=== PATIENT | female | born 1990 | race African-American/Black ===

== ENCOUNTER 2023-04-07 19:36 | Emergency (ER) | payer OTHER, SELFPAY ==
[2023-04-07 19:40] VITALS: BP 170/107
[2023-04-07 20:23] LABS: COVID-19 Antigen Negative (Negative)
[2023-04-07] MEDS: TYLENOL 1000 MG PO (22:11)
[2023-04-07] MEDS: TORADOL 30 MG IV (22:11)
[2023-04-07 22:12] LABS: % Basophils 0.5 % (0-2); % Eosinophils 1.3 % (0-6); % Immature Granulocytes 0.3 % (0-0.5); % Lymphocytes 16.3 % (20.5-51.1); % Monocytes 11.1 % (1.7-9.3); % Neutrophils 70.5 % (42.2-75.2); Absolute Basophils 0.1 10^3/uL (0-0.2); Absolute Eosinophils 0.1 10^3/uL (0-0.7); Absolute Lymphocytes 1.6 10^3/uL (1.2-3.4); Absolute Monocytes 1.1 10^3/uL (0.1-0.6); Hematocrit 40.7 % (37.0-47.0); Hemoglobin 13.7 g/dL (12.0-16.0); Mean Corp Hgb Conc. 33.7 g/dL (33.0-37.0); Mean Corpuscular Hgb 27.2 pg (27.0-31.0); Mean Corpuscular Volume 80.8 fL (81.0-99.0); Mean Platelet Volume 9.4 fL (7.4-10.4); Nucleated Red Blood Cells % 0 %; Platelet Count 298 10^3/uL (130-400); Red Blood Cell Count 5.04 10^6/uL (4.20-5.40); White Blood Cell Count 9.9 10^3/uL (4.8-10.8)
[2023-04-07] MEDS: NSS 1000 IV (22:12)
[2023-04-07 22:22] LABS: HCG, Serum Qualitative Screen Negative
[2023-04-07 22:27] LABS: ALT (SGPT) 89 U/L (0-35); AST (SGOT) 94 U/L (14-36); Alkaline Phosphatase 85 U/L (38-126); Blood Urea Nitrogen 9 mg/dl (7-17); Calcium 9.5 mg/dl (8.4-10.2); Carbon Dioxide 25 mmol/L (22-30); Chloride 95 mmol/L (98-107); Glucose 210 mg/dl (70-99); Potassium 4.1 mmol/L (3.5-5.1); Sodium 133 mmol/L (135-145); Total Bilirubin 0.7 mg/dl (0.2-1.3); Total Protein 7.3 g/dl (6.3-8.2); eGFR > 60.00
--- NOTE | 2023-04-07 23:30 | ED.GENMED ---
History of Present Illness
General
Chief Complaint: Breathing Problem
Source: patient
Exam Limitations: none
Time Seen by Provider: 04/07/23 21:13
Travel History
Have you had any contact with someone who has COVID-19?: Yes
Comment: herself
Do you have any symptoms of coronavirus? Fever > 100 degrees, chills, cough, shortness of breath, sore throat, loss of taste or smell, muscle aches, or headache?: Yes
Symptoms:: shortness of breath, fever, cough
History of Present Illness
History of Present Illness:
This is a 33 year old female that comes in with c/o fever and SOB. States that she was seen at an last night and told that she had COVID. States that she has a cough, fever and had trouble breathing. States that she has not taken anything as she
doesn't like to take medication. States that she has a headache with dizziness, and she vomited. Denies any chest pain, abd pain, nausea, diarrhea, urinary burning.
Past History
Past History
ED Past Medical History: NIDDM and Other (dysmenorrhea, Ovarian cyst)
ED Past Surgical History: Negative Appendectomy
Social History
Tobacco: Non-smoker
Alcohol: None
Drug: None
Personal: Single
Living: with family
Employment: Not employed
Family History
Family History: Other (Noncontributory)
Review of Systems
Review of Systems
All Other Systems: ROS reviewed and negative except as documented in HPI and ROS
Constitutional: Reports fever; Denies chills
EENT: Reports no symptoms
Respiratory: Reports cough and trouble breathing (Slight)
Cardiac: Reports no symptoms; Denies chest pain
ABD/GI: Reports vomiting; Denies abdominal pain, nausea or diarrhea
: Reports no symptoms; Denies dysuria, frequency or urgency
Musculoskeletal: Reports no symptoms
Skin: Reports no symptoms
Neurological: Reports dizzy and headache
Psychiatric: Reports no symptoms
Phy Exam
General Physical Exam
General Presentation: no apparent distress
General age: appears stated age
General Skin: warm and dry
General Habitus: normal
General Mental: alert
General Hydration: dry mucous membranes
ENT Exam
ENT Exam: TM's normal, pharynx normal and neck supple
Eye Exam
Eye Exam: EOMI
Cardiovascular Exam
Cardiovascular Exam: regular rate/rhythm, no edema, no murmur and normal peripheral pulses
Pulmonary Exam
Pulmonary Exam: lungs clear, no respiratory distress, no rales, chest non tender, no crackles, no rhonchi, no wheezing and other (Dry cough noted)
Gastrointestinal Exam
Gastrointestinal Exam: normal bowel sounds, non tender, soft, no organomegaly, no pulsatile mass, non distended and other (Obese)
Musculoskeletal Exam
Musculoskeletal Exam: full ROM and no edema
Skin Exam
Skin Exam: normal color, warm/dry, no rash and no petechia
Psychiatric Exam
Psychiatric Exam: normal mood/affect
Course
Orders/Labs/Results
Orders:
Orders
04/07/23 19:44
EKG [Electrocardiogram (*1)] Urgent
Reason for Study: Shortness of Breath
04/07/23 19:45
EKG- Treatment ONCE
04/07/23 19:52
COVID-19 Antigen Urgent
Source: Nasal Swab
Influenza A+B Rapid Molecular Urgent
JANUSZ Source: Nasal Swab
Specimen Description:
04/07/23 21:49
0.9% Sodium Chloride 1000 ml [Nss] 1,000 ml IV BOLUS
Acetaminophen [Tylenol] 1,000 mg PO NOW STA
Ketorolac [Toradol] 30 mg IV NOW STA
CR Chest - 2 Views Urgent
Comment:
Reason For Exam: SOB, Cough, fever
04/07/23 21:50
Test Result ONCE
04/07/23 22:07
Complete Blood Count/With Diff Urgent
Comprehensive Metabolic Panel Urgent
HCG, Serum Qualitative Screen Urgent
Abnormal Lab Results
04/07/23
22:07
MCV 80.8 L fL
(81.0-99.0)
Absolute Neuts (auto) 7.0 H 10^3/uL
(1.4-6.5)
Absolute Monos (auto) 1.1 H 10^3/uL
(0.1-0.6)
Lymphocytes % 16.3 L %
(20.5-51.1)
Monocytes % 11.1 H %
(1.7-9.3)
Sodium 133 L mmol/L
(135-145)
Chloride 95 L mmol/L
(98-107)
Glucose 210 H mg/dl
(70-99)
AST 94 H U/L
(14-36)
ALT 89 H U/L
(0-35)
04/07/23 22:07
04/07/23 22:07
Sodium slightly low. Glucose nonfasting, AST/ALT mildly elevated, HCG, COVID and influenza negative. HCG negative.
Vital Signs
Initial and Last Documented VS:
Initial Vital Signs
Temp Pulse Resp BP Pulse Ox
101.5 F H 124 18 170/107 94
04/07/23 19:40 04/07/23 19:40 04/07/23 19:40 04/07/23 19:40 04/07/23 19:40
Last Documented Vital Signs
Temp Pulse Resp BP Pulse Ox
101.5 F H 124 18 170/107 94
04/07/23 19:40 04/07/23 19:40 04/07/23 19:40 04/07/23 19:40 04/07/23 19:40
MDM/Problems Addressed
Differential Diagnosis Includes:
PNA, Viral illness,
MDM/Problems Addressed:
This is a 33 year old female that comes in with c/o fever and trouble breathing. States that she was told at last night she had COVID. States that her temp today was 100.3 and she had not taken anything.
Will check labs and Chest x-ray.
Back into see patient. Explained that she has Pneumonia. Will start on antibiotics and encouraged patient to increase her water intake to 8-8oz glasses daily. Patient to rake Tylenol 1000mg every 6 hours for fever and Ibuprofen 400mg every 6 hours
with food. Patient to return with any concerns.
Chronic conditions affecting care: DM
Acute Exacerbation and/or Progression of Chronic Illness:
NA
*Radiology
Radiology exam reviewed: radiology read reviewed (Chest=New airspace opacity in the right middle lobe and in the anterir inferior aspect of the anterior segment of the right upper lobe adjacent to the right minor fissure. Diagnostic possibilities
are (1) pneumonia or (2) subegmental atelectasis. Mild cardiomegaly. Mild elevation of the right ) and other (Chest cont- right hemidiaphragm. )
*Pulse Oximetry
Patient hypoxic: no
*EKG
Interpreted by ED Provider?: Yes
Heart Rate: 110
Rate: tachycardiac
Rhythm: sinus
[place]: normal axis
Interval: normal interval
QRS Pattern: normal QRS
Ischemia: no ischemia
*Technology Adoption Manager Interpretation
Rate: Technology Adoption Manager- N/A
*Critical Care Note
Total Time (30-74mins, 75-104mins- exclusive of procedures): Not Applicable
ED Attending Note
-
Portions of this chart may have been created with voice recognition software.� Occasional wrong word or��sound alike� substitutions may have occurred due to the inherent limitations of voice recognition software.
Discharge Plan
Departure
Patient Disposition: Home (Routine Discharge)
Date of Disposition: 04/07/23
Time of Disposition: 23:46
Patient with high blood pressure during this ER visit?: Yes
Condition: Good
Covid-19: Negative COVID-19
Discharge Problem:
Pneumonia
Instructions: Pneumonia, Adult (DC), BLOOD PRESSURE
Prescriptions:
New
doxycycline hyclate 100 mg capsule
100 mg PO BID Qty: 19 0RF
No Action
ibuprofen 600 MG tablet
600 mg PO Q6H PRN (Reason: pain) Qty: 20 0RF
Referrals:
Barrington Obrien, [Family Provider] - Call in 1-3 days for appt
Activity Restrictions/Additional Instructions:
As discussed, your blood work shows a normal White blood cell count but your liver enzymes are slightly elevated. You are negative for COVID and Influenza. Your chest x-ray shows that you have Pneumonia. You have been given your first dose of
antibiotic here and a prescription has been sent to your Pharmacy. Please take this as directed until finished. Follow up with the family doctor for recheck. Please increase your water intake to 8-8oz glasses daily. You may also take Tylenol 1000mg
every 6 hours for the fever and Ibuprofen 400mg every 6 hours with food. IF YOU HAVE ANY OTHER CONCERNS PLEASE RETURN TO THE EMERGENCY ROOM.
Interventions
Interventions:
ED- Fall Risk Assessment Last Done: 04/07/23 22:18
ED- Cardiac Assessment Last Done: 04/07/23 22:18
ED- Pulmonary Assessment Last Done: 04/07/23 22:18
[2023-04-08] MEDS: VIBRAMYCIN 100 MG PO (00:12)
[2023-04-08 00:19] VITALS: BP 123/82
[2023-04-08 00:20] VITALS: BP 123/82
== END 2023-04-08 00:36 | disposition home or self-care (01) ==
LOC: EMR 19:36
PROVIDERS: Clinical Nurse Specialist Family Health; Emergency Medicine; EMERGENCY PHYSICIAN Emergency Medicine; FAMILY PHYSICIAN Family Medicine
DX: J18.9 Pneumonia, unspecified organism (principal); Z11.52 Encounter for screening for COVID-19; R03.0 Elevated blood-pressure reading, without diagnosis of hypertension
CPT/HCPCS: 99285; 96374; 96361; 71046; 80053; 84703; 85025; 87502; 87811; 93005; 99284